=== PATIENT | male | born 1960 | race Caucasian/White ===

== ENCOUNTER 2022-03-30 16:16 | Observation (INO) | payer MEDICARE, MEDICAID, SELFPAY ==
[2022-03-29 13:28] VITALS: BMI 25.4
[2022-03-30] VITALS (20 sets, daily range): BP systolic 118–194; BP diastolic 77–111; PULSE 74–108; RESP 14–20; TEMP 36.5–37.6; O2SAT 92–98
--- NOTE | 2022-03-30 10:57 | P.ANESASSM_ITS ---
Pre-Anesthetic Assessment Height/Weight: Height 1.71 m Weight 74.843 kg Preop Diagnosis: Parotid mass Operation Date: 03/30/22 12:00 Proposed Procedures p Right Parotidectomy superfical or total poss abdominal fat graft harvest [id number] D11.0(Right) - Wade Vela MD s Skin Graft(Not Applicable) - Wade Vela MD Familial anesthetic complications: none Was Beta Tacos taken within 24 hours: N/A Was Clonidine taken within 24 hours: N/A Social Tobacco and No alcohol Exam alert, oriented x 3 and regular rate & rhythm B/L wheezing Airway Submandibular: within normal limits Cervical ROM: within normal limits Mallampati: Class II Comments: Comments: Upper dentures Pulmonary Says he had MAGUI on his chart when he had hand surgery, never followed up. No hx of witnessed apnea per spouse Denies dx of COPD CV/HEM Peripheral Vascular Disease (LE arterial stents ) EKG NSR today Able to ascend a flight of stairs w/o CP or SOB. When digging roots climbing steep hill does occasional get chest heaviness for which he stops and takes a rest and Rolaids before resuming the activity. Denies hx of CAD, [place], arrythmia None reported Hepatic None reported GI None reported Metabolic Hyperlipidemia [facility] [place] Remote hx of traumatic injury to hand Neuropsych None reported Anesthetic Plan ASA status: 3 Anesthesia: Anesthesia Evaluation and General Other: We discussed risk and benefits of general anesthesia including PONV, sore throat (sometimes severe), corneal abrasion, positioning and peripheral nerve injuries, life threatening allergic reaction, post operative ICU admission requiring prolonged intubation, aspiration, stroke, heart attack, , and rare incidences of recall. Patient consents to proceed with general anesthesia. Plan pre op scopalamine and diphenhydramine Risk of > 500 ml blood loss (7ml/kg in children): No Medications/Allergies Home Medications Medication Instructions Recorded Confirmed Last Taken Type aspirin 81 mg capsule 81 mg PO DAILY 03/29/22 03/29/22 03/25/22 History atorvastatin 20 mg tablet 20 mg PO DAILY 03/29/22 03/30/22 03/29/22 History clopidogrel 75 mg tablet 75 mg PO DAILY 03/29/22 03/29/22 03/25/22 History Allergies Allergy/AdvReac Type Severity Reaction Status Date / Time No Known Allergies Allergy Verified 03/29/22 12:49 [facility] Anesthesia Medical History (Updated 03/30/22 @ 11:35 by Joi Lewis DO) Peripheral artery disease Family History Mother Stroke Diabetes Social History Smoking and tobacco status: current every day smoker Second hand smoke exposure: Yes Data Anesthesia Cardiac Studies: No Data to Display
--- NOTE | 2022-03-30 11:10 | ECG_ITS ---
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 Measurements Intervals [place] Rate: 78 P: 54 [place]: 176 QRS: 56 QRSD: 86 T: 57 QT: 347 QTc: 397 Interpretive Statements SINUS RHYTHM No previous ECG available for comparison Electronically Signed On 03-30-2022 17:49:53 CDT by Gurdeep Tom M.D. [id number]
[2022-03-30] MEDS: scopolamine 1.5 Patch 1 PATCH TRANSDERMA (11:32)
[2022-03-30] MEDS: diphenhydrAMINE 50 mg/mL SDV 1mL 12.5 MG IVP (11:33)
[2022-03-30] MEDS: sodium chloride 0.9% 1,000 ML 30 ML IV (11:34)
--- NOTE | 2022-03-30 11:37 | W.PM.OPSUD ---
Surgery/Procedure H&P Update DATE OF PROCEDURE: March 30, 2022 DATE H&P PERFORMED: 03/08/22 PRIMARY INDICATION FOR PROCEDURE: Right parotid gland mass PLANNED PROCEDURE: Operation Date: 03/30/22 12:00 Proposed Procedures p Right Parotidectomy superfical or total poss abdominal fat graft harvest [id number] D11.0(Right) - Wade Vela MD s Skin Graft(Not Applicable) - Wade Vela MD
[2022-03-30] MEDS: ceFAZolin 2,000 MG in sodium chloride 0.9% (plus) 50 ML 100 MG IV ×2 (12:23→20:50)
[2022-03-30] MEDS: ceFAZolin 1,000 mg SDV 1000 MG IRRIGATION (13:33)
[2022-03-30] MEDS: EPINEPHrine 1 mg/mL INJ 2 MG XX (14:00)
[2022-03-30] MEDS: fluorescein 1 mg Strip 2 MG XX (14:02)
[2022-03-30] MEDS: thrombin 5,000 unit SDV 5000 UNIT XX (15:45)
[2022-03-30] MEDS: neomycin-poly-bacitracin oint 28 gm 1 APPLIC TOPICAL (16:00)
--- NOTE | 2022-03-30 16:48 | PM.OP ---
Operative Report Date of procedure: March 30, 2022 Pre-op diagnosis: Preop Diagnosis Right Parotid mass Post-op diagnosis: Same Post-op findings: Right tail of parotid mass Procedure done: Right superficial parotidectomy Implants: None Specimens removed/disposition: Right tail of parotid mass Pathology: Right tail of parotid mass Surgeon: Wade Vela Estimated blood loss: 20 IV fluids (mL): 1,000 Complications: None Findings: Large right tail of parotid mass Brief History: 61 yo wm who has a h/o a right tail of parotid gland mass who desires surgical therapy. Procedure: The patient was identified in the preop holding area and was taken to the operating where he was placed on the operating table in the supine position. Anesthesia was achieved with general endotracheal anesthesia and the table was then turned 180 degrees and the patient's head was turned to the left exposing the right face to the operating surgeon. A modified Stan incision was drawn out on the patient and was injected with local anesthesia. The patient was then prepped and draped in the usual sterile fashion and also had an incision the was drawn out and sterilely prepped in the left lower quadrant of the abdomen. The incision was made on the right face with a 15 blade and was carried down through the subcutaneous tissues. An anteriorly based subcutaneous flap was raised over the patient's right face and a broad dissection began along the posterior border of the right parotid gland. The parotid gland was from the sternocleidomastoid muscle and the right auricular cartilage. The dissection proceeded under 5 power loupe magnification with the Nirvana nerve monitoring hemostat down into the tympanomastoid suture line as the deepest point of the dissection. The facial nerve was then identified both visually and electrically was dissected free from the overlying parotid gland sequentially. The parotid tissue overlying the facial nerve was then divided with bipolar cautery. As the facial nerve was dissected free from the overlying parotid tissue the branches of the facial nerve were preserved intact. The tail of parotid mass was identified and then was excised while preserving a protecting the right facial nerve. 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 At this point hemostasis was achieved with bipolar cautery. Gelfoam soaked in thrombin and Surgicel were placed in the wound and a drain was placed in the wound. The left lower quadrant incision was made with a 15 blade and then fat was harvested from the left lower quadrant of the abdomen. The left lower quadrant wound was then closed after placing a Waterproof drain in the wound with interrupted 4-0 Monocryl sutures subcu and interrupted 3-0 Prolene on the skin. This left lower quadrant abdomen wound was then covered with a sterile dressing. The fat harvested was then placed in the surgical defect of the right face and was sutured in place with interrupted 4-0 Monocryl sutures. At this point the right facial wound was closed with interrupted 4-0 Monocryl sutures subcu and running 5-0 fast-absorbing gut on the face. The wound was then cleaned and covered with triple antibiotic ointment and a sterile pressure dressing was placed on the patient's facial wound. At this point the procedure was terminated and control of the patient was returned to anesthesia where he underwent an uneventful reversal of anesthesia and extubation and was taken to the recovery room in stable condition. There were no operative or anesthetic complications.
--- NOTE | 2022-03-30 16:49 | SUR.OPER ---
1600 Family Notified Of Patient's Status Via Phone.
--- NOTE | 2022-03-30 17:08 | ANE.PACU2 ---
Inpatient post-anesthesia follow up: Airway intact: Yes Vital signs: Temperature 98 F Pulse Rate 98 Respiratory Rate 15 Blood Pressure 160/109 Pulse Oximetry 94 Oxygen Delivery Me thod Nasal Cannula Oxygen Flow Rate 2 Fraction of Inspir ed Oxygen Hydration adequate: Yes Nausea and vomiting: No Pain level: 3 Mental status: Baseline
--- NOTE | 2022-03-30 17:41 | PC.NURSE ---
Nurse was notified of high bp 158/106 99.6t
--- NOTE | 2022-03-30 17:52 | PC.NURSE ---
1720 PATIENT TRANSPORTED TO FLOOR. FAMILY AT BEDSIDE. RECEIVING NURSE VISUALIZED DRESSINGS. VS STABLE.
--- NOTE | 2022-03-30 18:22 | PC.NURSE ---
received in to room 273 from pacu at 1730.report received.pt is alert and oriented x 4.right neck drsg is dry and intact..with roseanna intact to bulb suction.abd drsg dry and intact...(jabier drain under drsg).bp has been on high side.and at 1825 pt c/o heart burn with pain radiating down bilat arms.( pt states he has heartburn at home with radiation to arms).skin is dry.no sob.hr [address] gregg notified of bp readings and c/o chest pain.he ordered ekg.
--- NOTE | 2022-03-30 18:27 | ECG_ITS ---
[facility] Test Date: 2022-03-30 Pat Name: Basil Chua Department: Room: 273 Gender: Male Director Search: : 1960 Requested By: Wade Stone Order Number: [id number] [place] MD: Gurdeep Tom M.D. Measurements Intervals [place] Rate: 98 P: 63 [place]: 163 QRS: 60 QRSD: 89 T: 57 QT: 338 QTc: 433 Interpretive Statements SINUS RHYTHM Compared to ECG 03/30/2022 11:15:38 No significant changes Electronically Signed On 03-31-2022 0:19:07 CDT by Gurdeep Tom M.D. [email or web address] southeastern medical centerGAGA Sports & Entertainment/store/OM/[id number]
[2022-03-30] MEDS: alum-mag-hydroxide-sime 30 mL UDC PO (18:39)
[2022-03-30] MEDS: famotidine 20 mg/2 mL INJ IVP (18:44)
--- NOTE | 2022-03-30 19:19 | PC.NURSE ---
ekg performed shortly after ordering.pt states chest pain had resolved after maalox given.instructed to notify staff for any chest pain/heartburn.pt verb understanding of instruction
[2022-03-30] MEDS: HYDROcodone-acetaminophen 5-325 mg Tablet 1 TAB PO (20:05)
[2022-03-30] MEDS: atorvastatin 40 mg Tablet 20 MG PO (20:05)
--- NOTE | 2022-03-30 20:20 | XRR_ITS ---
PROCEDURE INFORMATION: Exam: XR Chest Exam date and time: 03/30/2022 8:30 PM Age: 61 years old Clinical indication: Pain; Angina pectoris; Additional info: Cp TECHNIQUE: Imaging protocol: Radiologic exam of the chest. Views: 1 view. COMPARISON: CT neck w con* [id number] 10/10/2019 8:16 AM FINDINGS: Lungs: There are normal lung volumes without interstitial or airspace opacities. Pleural spaces: There are no pleural effusions or pneumothorax. Heart/Mediastinum: The heart size is normal. There is a mildly tortuous thoracic aorta. The trachea is in the midline. Bones/joints: No acute abnormalities. XR/XR chest 1V portable [id number] IMPRESSION: No chest radiographic evidence of acute cardiopulmonary disease.
[2022-03-30] MEDS: calcium carbonate 500 mg Chew Tablet 1000 MG PO (20:44)
[2022-03-30] MEDS: carvedilol 3.125 mg Tablet PO (20:44)
[2022-03-30] MEDS: lactated ringers 1,000 ML 125 ML IV (20:45)
[2022-03-30] MEDS: lidocaine 2% viscous 15 ML, aluminum-mag hydrox-simethicon 30 ML, sucralfate oral liq 1 GM PO (21:18)
[2022-03-30 21:52] LABS: Basophils % 0.1 %; Hematocrit 42.1 % (42.0-52.0); Lymphocytes % 6.7 %; Mean Corpuscular HGB Conc 33.3 g/dL (30.0-36.0); Mean Corpuscular Volume 93.1 fl (80-94); Mean Platelet Volume 11.3 fL (7.4-10.4); Monocytes # 0.6 10^3/uL (0.2-0.9); Neutrophils # 12.63 10^3/uL (1.8-7.7); Neutrophils % 88.5 %; Nucleated Red Blood Cells % 0 %; Platelet Count 298 10^3/cmm (130-400); Red Blood Count 4.52 10^6/uL (4.1-5.3); Red Cell Distribution Width 13.3 % (12.1-15.1); White Blood Count 14.3 10^3/uL (4.0-10.0)
--- NOTE | 2022-03-30 21:52 | P.CONIM_ITS ---
Providers/Reason For Consult Consulting Physician/Specialty*: ENT Reason for Consult*: Chest pain Attending Physician: Wade Vela MD Primary Care Provider: Lopez Lyon History of Present Illness History of Present Illness Basil Chua is a 61 year old male with a past medical history of peripheral vascular disease on aspirin, statin, Plavix, no history of CAD, no history of CHF, no history of diabetes who presents [facility] for a right superficial parotid ectomy for a right tail parotid mass, hospitalist team was consulted for chest pain. Patient tells me that he has been having intermittent chest pain for the last few weeks, right-sided, radiating down both arms, no lightheadedness, dizziness, nausea, vomiting. He thought it was acid reflux. This afternoon, after he had a sandwich, he started to have some epigastric discomfort, then developed a right-sided chest pain, radiating down both arms, no shortness of breath, no diaphoresis, lightness, dizziness. Currently chest pain-free Review of Systems Card: Reports: chest pain Resp: Denies: dyspnea GI: Denies: abdominal pain Medications/Allergies Home Medications Medication Instructions Recorded Confirmed Last Taken Type aspirin 81 mg capsule 81 mg PO DAILY 03/29/22 03/29/22 03/25/22 History atorvastatin 20 mg tablet 20 mg PO DAILY 03/29/22 03/30/22 03/29/22 History clopidogrel 75 mg tablet 75 mg PO DAILY 03/29/22 03/29/22 03/25/22 History Allergies Allergy/AdvReac Type Severity Reaction Status Date / Time No Known Allergies Allergy Verified 03/29/22 12:49 Current Medications Generic Name Dose Route Start Last Admin Trade Name Freq PRN Reason Stop Dose Admin Hydrocodone Bitart/Acetaminophen 1 tab 03/30/22 17:22 03/30/22 20:05 Hydrocodone-Acetaminophen 5-325 Mg Tablet PO 1 tab Q6H PRN Administration MODERATE PAIN Al Hydrox/Mg Hydrox/Simethicone 30 ml 03/30/22 18:20 03/30/22 18:39 Xddh-Qnx-Gbqpqlxae-Rashida 30 Ml Udc PO 30 ml Q4H PRN Administration INDIGESTION Atorvastatin Calcium 20 mg 03/30/22 21:00 03/30/22 20:05 Atorvastatin 40 Mg Tablet PO 20 mg BEDTIME JUAN PABLO Administration Calcium Carbonate 1,000 mg 03/30/22 20:30 03/30/22 20:44 Calcium Carbonate 500 Mg Chew Tablet PO 1,000 mg Q4H PRN Administration INDIGESTION Carvedilol 3.125 mg 03/30/22 20:20 03/30/22 20:44 Carvedilol 3.125 Mg Tablet PO 3.125 mg BID JUAN PABLO Administration Docusate Sodium 100 mg 03/30/22 18:00 03/30/22 18:39 Docusate Sodium 100 Mg Capsule PO Not Given BID JUAN PABLO Famotidine 20 mg 03/30/22 17:22 03/30/22 18:44 Famotidine 20 Mg/2 Ml Inj IVP 20 mg Q12H JUAN PABLO Administration Lactated Ringer's 1,000 mls @ 125 mls/hr 03/30/22 17:22 03/30/22 20:45 Lactated Ringers IV 125 mls/hr .Q8H JUAN PABLO Administration Cefazolin Sodium 2,000 mg/ 50 mls @ 100 mls/hr 03/30/22 20:00 03/30/22 21:22 Sodium Chloride IV 03/31/22 04:29 Infused Q8H JUAN PABLO Infusion Protocol PFSH Acute PFSH: Medical History (Updated 03/30/22 @ 21:54 by Marquez Collado MD) Arthritis DVT (deep venous thrombosis) GERD (gastroesophageal reflux disease) High cholesterol HTN (hypertension) Hyperlipidemia Mass of right parotid gland PAD (peripheral artery disease) Peripheral artery disease Posterior cervical lymphadenopathy PVD (peripheral vascular disease) Tobacco use Warthin's tumor Surgical History (Updated 03/30/22 @ 21:53 by Marquez Collado MD) H/O hand surgery History of surgery on lower extremity Family History Mother Stroke Diabetes Social History Smoking and tobacco status: current every day smoker Second hand smoke exposure: Yes Vitals/I&O/Wt Last Vital Signs Temp 97.9 F 03/30/22 19:50 Pulse 95 03/30/22 19:50 Resp 18 03/30/22 19:50 BP 158/91 03/30/22 19:50 Pulse Ox 94 03/30/22 19:50 O2 Del Method 03/30/22 20:27 O2 Flow Rate 2 08/23/22 17:00 03/30/22 03/30/22 03/30/22 06:59 14:59 22:59 Intake Total 50 / 50 1200 / 1250 Output Total 105 / 105 Balance 50 / 50 1095 / 1145 Weight last 48 hrs Weight 74.616 kg Weight 74.843 kg Physical Exam Const: COMMON NORMALS: no acute distress and patient oriented x3 OTHER: , Currently dressing over surgical site, HENMT: COMMON NORMALS: normocephalic HEAD & SCALP: normocephalic Neck/C-Spine: COMMON NORMALS: no JVD Resp: COMMON NORMALS: normal respiratory effort, No retractions, No use of accessory muscles and clear to auscultation bilaterally AUSCULTATION: clear to auscultation bilaterally Cardio: COMMON NORMALS: no JVD, regular rate, regular rhythm, S1 normal heart sound present and S2 normal heart sound present RATE: regular rate RHYTHM: regular rhythm HEART SOUNDS: S1 normal heart sound present and S2 normal heart sound present GI: COMMON NORMALS: Normal to inspection, nondistended, normoactive bowel sounds present, Soft to palpation, non-tender, No hepatosplenomegaly present, no masses and no bruits PALPATION: Yes Soft to palpation and Yes No h epatosplenomegaly present Extremity: COMMON NORMALS: capillary refill normal, no clubbing, cyanosis or edema, no calf tenderness and no pedal edema Neuro: COMMON NORMALS: patient oriented x3 Psych: COMMON NORMALS: mental status grossly normal Urinary Catheter Management: Hickey: Cath Placed During This Visit: yes, but has since been removed by the nurse Urinary Catheter Date of Insertion: 03/30/22 Urinary Catheter Time of Insertion: 13:00 Date Urinary Catheter Removed: 03/30/22 Time Urinary Catheter Discontinued: 16:13 Data : 03/30/22 21:35 03/30/22 21:35 A&P Assessment and plan (1) Chest pain: Status: Acute Plan Chest pain -Does have some features concerning for cardiac etiology -Currently chest pain-free -Hold off on aspirin, statin, Plavix until Dr. Selby is okay with resuming, unless he has recurrent chest pain or other EKG changes or troponin elevation -Serial EKGs, serial troponins, telemetry monitoring -Coreg for blood pressure control, nitro as needed for chest pain -Blood work, cardiac echo - full code -SCDs for DVT prophylaxis - Consult Attestations Medical Necessity Statement: Patient requires positions for right superficial parotidectomy, hospitalist team consulted for chest pain Coding Level of Care Code Acute Health Education Teacher for Chg Fwd Diagnoses Chest pain R07.9
[2022-03-30 22:16] LABS: Troponin(5th) Baseline 6 ng/L (0-15)
--- NOTE | 2022-03-30 22:19 | ECG_ITS ---
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 Measurements Intervals [place] Rate: 70 P: 67 GA: 183 QRS: 67 QRSD: 94 T: 64 QT: 375 QTc: 407 Interpretive Statements SINUS RHYTHM Compared to ECG 03/30/2022 18:27:40 No significant changes Electronically Signed On 03-31-2022 16:30:15 CDT by Jesus Jackson M.D. [id number]
[2022-03-30 22:26] LABS: Blood Urea Nitrogen 16 mg/dL (8-23); Calcium 8.7 mg/dL (8.5-10.5); Carbon Dioxide 20 mmol/L (22-29); Glomerular Filtration Rate 68.1 mL/min (90-130); Glucose 205 mg/dL (65-115); Magnesium 1.8 mg/dL (1.7-2.3); NT Pro B Type Natriuretic Pept 71 pg/mL (0-125); Phosphorus 1.7 mg/dL (2.5-4.5); Thyroid Stimulating Hormone 0.46 uIU/mL (0.27-4.20); Total Bilirubin 0.2 mg/dL (0.15-1.2); Total Protein 6.3 g/dL (6.6-8.7)
[2022-03-30 22:31] LABS: Anion Gap 21.4 (5-19); Chloride 101 mmol/L (98-107); Osmolality Calculated 293 mOsm/kg (285-295); Potassium 4.4 mmol/L (3.5-5.1); Sodium 138 mmol/L (136-145)
[2022-03-30 22:52] LABS: Globulin 2.3 g/dL (1.3-4.6)
[2022-03-30 23:29] LABS: Alanine Aminotransferase 14 U/L (0-41); Alkaline Phosphatase 72 U/L (40-130); Aspartate Amino Transferase 11 U/L (0-40)
--- NOTE | 2022-03-31 | USCV_ITS ---
Basil Chua Age: 61 Gender: M : 1960 Exam Date: 03/31/2022 00:09 Ordering Phys: Marquez Collado MD Technologist: DARA Exam Location: [facility] – [place] Indication: Per patient -- chronic intermittent shortness of breath since 2016. Patient is post-op 03/30/22 - tumor resection from head/neck area BP: 158 / 91 HR: Rhythm: Sinus Technical Quality: Suboptimal MEASUREMENTS (Male / Female) Normal Values FINDINGS Left Ventricle Normal left ventricular size, systolic function and wall thickness, with no regional wall motion abnormalities. Grade I/IV diastolic dysfunction (abnormal relaxation filling pattern), normal to mildly elevated filling pressures. Left ventricular ejection fraction is estimated at 60 %. Right Ventricle Normal right ventricular size and systolic function. Right Atrium Right atrium not well visualized. Left Atrium Left atrium not well visualized. Mitral Valve Structurally normal mitral valve without significant stenosis or prolapse. There is no mitral regurgitation. Aortic Valve Structurally normal aortic valve without significant sclerosis or stenosis. There is no aortic regurgitation. Tricuspid Valve Structurally normal tricuspid valve. Trace tricuspid valve regurgitation. Pulmonic Valve Pulmonic valve not well visualized. Pericardium Normal pericardium without effusion. Aorta Normal ascending aorta dimension. IVC The inferior vena cava pulmonary and hepatic veins appear normal. CONCLUSIONS Normal left ventricular size, systolic function and wall thickness, with no regional wall motion abnormalities. Grade I/IV diastolic dysfunction (abnormal relaxation filling pattern), normal to mildly elevated filling pressures. Left ventricular ejection fraction is estimated at 60 %. Dr. Jesus Jackson MD (Electronically Signed) Final Date: 31 March 2022 16:01 S
[2022-03-31 01:00] VITALS: BP 128/77; PULSE 76; RESP 18; O2SAT 94
[2022-03-31 01:17] LABS: Troponin 5 2HR Delta 0 ABS# (0-10)
[2022-03-31] MEDS: HYDROcodone-acetaminophen 5-325 mg Tablet 1 TAB PO ×2 (02:07→10:20)
[2022-03-31] MEDS: lactated ringers 1,000 ML 125 ML IV ×2 (02:09→10:21)
[2022-03-31] MEDS: calcium carbonate 500 mg Chew Tablet 1000 MG PO (03:52)
[2022-03-31] MEDS: ceFAZolin 2,000 MG in sodium chloride 0.9% (plus) 50 ML 100 MG IV (03:53)
[2022-03-31 04:00] VITALS: BP 132/85; PULSE 71; RESP 18; TEMP 36.6; O2SAT 92
[2022-03-31] MEDS: famotidine 20 mg/2 mL INJ IVP (04:45)
[2022-03-31 04:53] LABS: Troponin 5 6HR 9.53 ng/L (0-15)
[2022-03-31 05:16] LABS: Troponin 5 6HR Delta 3.53 ng/L (0-12)
--- NOTE | 2022-03-31 05:22 | P.PN_ITS ---
Subjective Subjective: 61 yo wm who is POD #1 s/p right superficial parotidectomy for a Warthin's tumor. The patient c/o chest pain last night and is currently undergoing a w/u by the Hospitalist team (Dr. Collado). The patient is asymptomatic and without c/o this morning. Medications: Reviewed: Yes Vitals/I&O/Wt Last Vital Signs Temp 97.8 F 03/31/22 04:00 Pulse 71 03/31/22 04:00 Resp 18 03/31/22 04:00 BP 132/85 03/31/22 04:00 Pulse Ox 92 03/31/22 04:00 O2 Del Method 03/31/22 01:00 O2 Flow Rate 2 03/30/22 17:00 03/30/22 03/30/22 03/31/22 14:59 22:59 06:59 Intake Total 50 / 50 1200 / 1250 725 / 1975 Output Total 105 / 105 500 / 605 Balance 50 / 50 1095 / 1145 225 / 1370 Weight last 48 hrs Weight 74.616 kg Weight 74.843 kg Physical Exam Const: COMMON NORMALS: no acute distress, patient oriented x3 and alert HENMT: COMMON NORMALS: normocephalic and atraumatic HEAD & SCALP: normocephalic and atraumatic FACE & SINUS: normal facial exam and other (The right facial wound is intact without swelling or redness.) Eye: COMMON NORMALS: Equal, round and reactive pupils present, conjunctivae normal and no scleral icterus CONJUNCTIVA: Yes conjunctivae normal PUPIL: Yes Equal, round and reactive pupils present Neck/C-Spine: COMMON NORMALS: no lymphadenopathy and supple Chest: COMMONS NORMALS: normal inspection of the chest Resp: COMMON NORMALS: normal respiratory effort, No retractions, No use of accessory muscles and clear to auscultation bilaterally AUSCULTATION: clear to auscultation bilaterally Cardio: COMMON NORMALS: regular rate, regular rhythm and No murmurs present (Cardio) RATE: regular rate RHYTHM: regular rhythm GI: COMMON NORMALS: Normal to inspection, nondistended, normoactive bowel sounds present Extremity: NARRATIVE EXTREMITY EXAM: Post surgical changes of the right hand; o/w normal. Neuro: COMMON NORMALS: patient oriented x3 and CN's II-XII intact bilaterally SENSORIUM/ORIENTATION: Yes alert Psych: COMMON NORMALS: mental status grossly normal Skin: COMMON NORMALS: no rashes or lesions noted GENERAL SKIN EXAM: no rashes or lesions noted Urinary Catheter Management: Hickey: Cath Placed During This Visit: yes, but has since been removed by the nurse Urinary Catheter Date of Insertion: 03/30/22 Urinary Catheter Time of Insertion: 13:00 Date Urinary Catheter Removed: 03/30/22 Time Urinary Catheter Discontinued: 16:13 Data : 03/30/22 21:35 03/30/22 21:35 A&P Assessment and plan (1) Mass of right parotid gland: Impression: Right parotid Warthin's tumor - doing well s/p right superficial parotidectomy Plan: - Dressing removedd - Continue closed suction drain - Regular diet - Apply KENYON to the right facial wound - Daily dressing changes on the left abdominal dressin - I will d/c to home/PCP when cleared by Dr. Collado. I appreciate his timely consultation. Status: Acute (2) Chest pain: Impression: Pt asymptomatic this morning Plan: - I will d/c to home/PCP when cleared by Dr. Collado. - I will restart his Plavix and Aspirin today Status: Acute (3) Peripheral artery disease: Status: Acute Attestations Medical Necessity Statement*: The patient patient required overnight observation of his airway and neck wound. Also, he is being evaluated for chest pain. Coding Level of Care Code Acute Magnetic Resonance Imaging Coordinator for Jose Miguel Mendoza Diagnoses Mass of right parotid gland K11.8 Chest pain R07.9 Peripheral artery disease I73.9
[2022-03-31 06:00] VITALS: PULSE 66
[2022-03-31 07:41] VITALS: BP 144/85; PULSE 72; RESP 16; TEMP 36.8; O2SAT 94
[2022-03-31] MEDS: clopidogrel 75 mg Tablet PO (10:20)
[2022-03-31] MEDS: carvedilol 3.125 mg Tablet PO (10:20)
[2022-03-31] MEDS: aspirin 81 mg EC Tablet PO (10:20)
[2022-03-31] MEDS: docusate sodium 100 mg Capsule PO (10:20)
[2022-03-31] MEDS: neomycin-poly-bacitracin oint 28 gm 1 APPLIC TOPICAL ×2 (10:26→14:41)
--- NOTE | 2022-03-31 10:43 | P.PN_ITS ---
Subjective Subjective: No acute events overnight. Patient laying comfortably in bed. Blood pressure better controlled. Denies any nausea, vomiting, headache. Denies any chest pain. Medications: Reviewed: Yes Vitals/I&O/Wt Last Vital Signs Temp 98.2 F 03/31/22 07:41 Pulse 72 03/31/22 07:41 Resp 16 03/31/22 07:41 BP 144/85 03/31/22 07:41 Pulse Ox 94 03/31/22 07:41 O2 Del Method 03/31/22 07:41 O2 Flow Rate 2 03/30/22 17:00 03/30/22 03/31/22 03/31/22 22:59 06:59 14:59 Intake Total 1200 / 1250 725 / 1975 1240 / 1240 Output Total 105 / 105 525 / 630 Balance 1095 / 1145 200 / 1345 1240 / 1240 Weight last 48 hrs Weight 74.616 kg Weight 74.843 kg Physical Exam Const: COMMON NORMALS: no acute distress and patient oriented x3 OTHER: , Surgical site looks clean, drain present HENMT: COMMON NORMALS: normocephalic HEAD & SCALP: normocephalic Neck/C-Spine: COMMON NORMALS: no JVD Resp: COMMON NORMALS: normal respiratory effort, No retractions, No use of accessory muscles and clear to auscultation bilaterally AUSCULTATION: clear to auscultation bilaterally Cardio: COMMON NORMALS: no JVD, regular rate, regular rhythm, S1 normal heart sound present and S2 normal heart sound present RATE: regular rate RHYTHM: regular rhythm HEART SOUNDS: S1 normal heart sound present and S2 normal heart sound present GI: COMMON NORMALS: Normal to inspection, nondistended, normoactive bowel sounds present, Soft to palpation, non-tender, No hepatosplenomegaly present, no masses and no bruits PALPATION: Yes Soft to palpation and Yes No hepatosplenomegaly present Extremity: COMMON NORMALS: capillary refill normal, no clubbing, cyanosis or edema, no calf tenderness and no pedal edema Neuro: COMMON NORMALS: patient oriented x3 Psych: COMMON NORMALS: mental status grossly normal Urinary Catheter Management: Hickey: Cath Placed During This Visit: yes, but has since been removed by the nurse Urinary Catheter Date of Insertion: 03/30/22 Urinary Catheter Time of Insertion: 13:00 Date Urinary Catheter Removed: 03/30/22 Time Urinary Catheter Discontinued: 16:13 Data : 03/30/22 21:35 03/30/22 21:35 A&P Assessment and plan (1) Chest pain: Patient has a history of significant PAD. Restarted aspirin and Plavix last night after confirming with Dr. Selby. Continue home dose statin. Check A1c, lipid panel. Echocardiogram done. Results awaited. If patient has regional wall motion abnormality most likely would need early Lexiscan stress test as an outpatient for further evaluation. Troponins cycle overnight negative. Status: Acute (2) HTN (hypertension): Goal blood pressure less than 140/90 mmHg. Continue with Coreg started overnight. Blood pressures at goal. Status: Acute Plan Patient can be discharged on aspirin, Plavix, statin along with Coreg. Patient is advised to maintain a blood pressure diary by checking his blood pressure twice daily and follow-up with his primary care provider within next 2 weeks for further adjustment of antihypertensives. Will await echocardiogram results. We will plan for follow-up with cardiology versus Lexiscan stress test as an outpatient depending on EF and regional wall motion abnormality on echocardiogram. Otherwise patient is safe to be discharged from medical point of view after echocardiogram results. Care discussed in detail with RN and patient primary team. Attestations Medical Necessity Statement*: As per primary team Time Spent in Patient Care: Greater than 35 minutes Coding Level of Care Code Acute Tool Room Gear Machine Operator for Jose Miguel Mendoza Diagnoses Chest pain R07.9 HTN (hypertension) I10
[2022-03-31 11:15] LABS: Chol HDL Ratio 3.47 mg/dL (1.0-5.00); Cholesterol 149 mg/dL (0-200); HDL Cholesterol 43 mg/dL (60-100); LDL Cholesterol Calculated 86 mg/dL (50-129); Thyroid Stimulating Hormone 0.38 uIU/mL (0.27-4.20); Triglycerides 99 mg/dL (0-150); VLDL Cholestrol Calculation 20 mg/dL (0-30)
[2022-03-31 11:20] LABS: Estmated Average Glucose 111; Hemoglobin A1C 5.5 % (4.0-6.0)
[2022-03-31 12:00] VITALS: BP 124/84; PULSE 76; RESP 16; TEMP 36.9; O2SAT 95
--- NOTE | 2022-03-31 13:05 | PC.CHAP ---
Pastoral Care Encounter/Spiritual Assessment Type of Contact [] Declined arc furnace operator visit [] Patient/Family/Request visit [] Outpatient visit [] Follow-up visit [] Physician referral [] Code/Alert [x] Routine visit [] Staff referral [] Actively dying [] Patient sleeping [x] Family support [] [] Out of room [] Palliative care [] [] Receiving care in room [] Pre-surgical visit [] Trauma [] Long length of stay [] ICU visit [x] Other: pleased with surgery.. prayed for healing and pain Relational/Emotional Strength [] Patient feels connected with others/family/visitors/staff [] Distress [] Loneliness/isolation [] Abandonment Spirituality of Patient [] Person of Lori [] Attends Yazidism of their Lori [] Believes in Prayer [] Reads Bible or Religion materials [] There are Spiritual issues to be addressed Advisory Services Associate Interventions [x] Prayer [] Active listening [] Non-anxious presence [] Spiritual/emotional support [] Crisis/trauma care [] Spiritual counseling [] Bereavement support [] Provided bereavement packet [] Provided Bible/devotional materials [] Provided toy/stuffed animal, coloring book to patient or family member [] Provided Communion [] Anointing/[place] [] Salvation [x] Completed spiritual assessment [] Other: Impact on Illness or Injury [] Angry [] Fearful [] Anxious [] Often cries [] Exhaustion [] Unable to work [] Unable to attend yarsanism [] Unable to walk/stand [] Unable to read [] Unable to drive [] Unable to eat/drink [] Unable to sleep [] Unable to be with family [] Patient intubated [] Other: Summary Time spent with patient
--- NOTE | 2022-03-31 16:57 | P.DS_ITS ---
Discharge Providers Date of Admission: 03/30/22 16:16 Date of Discharge: March 31, 2022 Attending Provider at Admission: Wade Vela MD Attending Provider at Discharge: Wade Vela MD Consults: Hospitalist Team Primary Care Provider: Lopez Lyon Diagnoses at Discharge Discharge Diagnosis (1) Chest pain: Details from hospital stay: The patient c/o chest on the night of surgery. The Hospitalist team was consulted. Please see their notes for details of this w/u. Status: Acute (2) HTN (hypertension): Details from hospital stay: The patient was noted to have hypertension post op. The Hospitalist team was c onsulted. Please see their notes for details. 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 Vela's office in 48 hours - Notify Dr. Vela for any problems - Benezett () tabs: take 1-2 tabs po Q5 hours prn pain, #25, NR Status: Acute Reason for Visit Reason for Visit: Brief History: 61 yo wm with a h/o a right parotid mass who desires surgical excisional biopsy. Hospital Course Hospital Course The patient was admitted on 30 March 2022 for surgical excision of a right parotid mass. Patient underwent a right superficial parotidectomy with left abdominal fat graft harvest -please see the op report for details of this procedure. The patient was transferred to the PACU postop where he was noted to have hypertension. Patient also complained of chest pain once he arrived on the floor. The hospitalist team was consulted and the patient underwent an evaluation for chest pain. Please see the hospitalist team's notes for details of this work-up. On postop day 1 in the afternoon, the patient was cleared by the hospitalist team for discharge. He was discharged in stable condition with follow-up with cardiology and his PCP. For his cardiac work-up and hypertensio n. His aspirin and Plavix were restarted on postop day 1. Patient is to follow-up with Dr. Selby in 48 hours for evaluation of his drain. He is to and notify Dr. Osorio for any problems. Physical Exam Const: COMMON NORMALS: no acute distress, patient oriented x3 and alert HENMT: COMMON NORMALS: normocephalic, atraumatic and Normal external nose present HEAD & SCALP: normocephalic and atraumatic FACE & SINUS: normal facial exam and other (The right facial/neck wound is intact without swelling or redness. ) NOSE: Normal external nose present Eye: COMMON NORMALS: Equal, round and reactive pupils present and conjunctivae normal CONJUNCTIVA: Yes conjunctivae normal PUPIL: Yes Equal, round and reactive pupils present Neck/C-Spine: COMMON NORMALS: no lymphadenopathy and supple Lymph: LYMPHATIC: no lymphadenopathy noted Chest: COMMONS NORMALS: normal inspection of the chest Resp: COMMON NORMALS: normal respiratory effort, No retractions, No use of accessory muscles and clear to auscultation bilaterally AUSCULTATION: clear to auscultation bilaterally Cardio: COMMON NORMALS: regular rate, regular rhythm and No murmurs present (Cardio) RATE: regular rate RHYTHM: regular rhythm GI: COMMON NORMALS: Normal to inspection, nondistended, normoactive bowel sounds present Extremity: NARRATIVE EXTREMITY EXAM: Post traumatic scarring of the right hand, but o/w normal extremities. Neuro: COMMON NORMALS: patient oriented x3, CN's II-XII intact bilaterally, moves all extremities and no focal motor deficits SENSORIUM/ORIENTATION: Yes alert Urinary Catheter Management: Hickey: Cath Placed During This Visit: yes, but has since been removed by the nurse Urinary Catheter Date of Insertion: 03/30/22 Urinary Catheter Time of Insertion: 13:00 Date Urinary Catheter Removed: 03/30/22 Time Urinary Catheter Discontinued: 16:13 Discharge Data Studies Completed and Pending Completed Studies During Hospitalization Category Date Time Status XR chest 1V portable [id number] Routine Exams 03/30/22 20:20 Completed Pathology: Surgical [PTH] Routine Pth 03/30/22 16:07 Completed Pending at discharge Category Date Time Status CV. echo complete* [id number] Routine Ultrasound 03/31/22 21:51 Taken Radiology Impressions Chest X-Ray 03/30/22 20:20 IMPRESSION: No chest radiographic evidence of acute cardiopulmonary disease. Laboratory Results WBC 14.3 10^3/uL (4.0-10.0) H 03/30/22 21:35 RBC 4.52 10^6/uL (4.1-5.3) 03/30/22 21:35 Hgb 14.0 g/dL (11.7-16.6) 03/30/22 21:35 Hct 42.1 % (42.0-52.0) 03/30/22 21:35 MCV 93.1 fl (80-94) 03/30/22 21: MCH 31.0 pg (28.0-34.0) 03/30/22 21:35 MCHC 33.3 g/dL (30.0-36.0) 03/30/22 21:35 RDW 13.3 % (12.1-15.1) 03/30/22 21:35 Plt Count 298 10^3/cmm (130-400) 03/30/22 21:35 MPV 11.3 fL (7.4-10.4) H 03/30/22 21:35 Neut % (Auto) 88.5 % 03/30/22 21: Lymph % (Auto) 6.7 % 03/30/22 21:35 [place] % (Auto) 4.0 % 03/30/22 21:35 Eos % (Auto) 0.0 % 03/30/22 21:35 Baso % (Auto) 0.1 % 03/30/22 21: Neut # (Auto) 12.63 10^3/uL (1.8-7.7) H 03/30/22 21:35 Lymph # (Auto) 1.0 10^3/uL (0.8-4.8) 03/30/22 21:35 [place] # (Auto) 0.6 10^3/uL (0.2-0.9) 03/30/22 21:35 Eos # (Auto) 0.0 10^3/uL (0.0-0.8) 03/30/22 21:35 Baso # (Auto) 0.0 10^3/uL (0.0-0.1) 03/30/22 21:35 Nucleated RBC % (auto) 0 % 03/30/22 21: Nucleated RBCs # 0.0 /100WBC 03/30/22 21: Sodium 138 mmol/L (136-145) 03/30/22 21:35 Potassium 4.4 mmol/L (3.5-5.1) 03/30/22 21:35 Chloride 101 mmol/L (98-107) 03/30/22 21:35 Carbon Dioxide 20 mmol/L (22-29) L 03/30/22 21:35 Anion Gap 21.4 (5-19) H 03/30/22 21:35 BUN 16 mg/dL (8-23) 03/30/22 21:35 Creatinine 1.1 mg/dL (0.7-1.2) 03/30/22 21:35 GFR Calculation 68.1 mL/min (90-130) L 03/30/22 21:35 Glucose 205 mg/dL (65-115) H 03/30/22 21:35 Estimat Average Glucose 111 03/30/22 21:35 Hemoglobin A1c 5.5 % (4.0-6.0) 03/30/22 21:35 Calculated Osmolality 293 mOsm/kg (285-295) 03/30/22 21:35 Calcium 8.7 mg/dL (8.5-10.5) 03/30/22 21:35 Phosphorus 1.7 mg/dL (2.5-4.5) L 03/30/22 21:35 Magnesium 1.8 mg/dL (1.7-2.3) 03/30/22 21:35 Total Bilirubin 0.2 mg/dL (0.15-1.2) 03/30/22 21:35 AST 11 U/L (0-40) 03/30/22 21:35 ALT 14 U/L (0-41) 03/30/22 21:35 Alkaline Phosphatase 72 U/L (40-130) 03/30/22 21:35 Troponin T Baseline 6 ng/L (0-15) 03/30/22 21:35 Troponin T 120 Minute 6.00 ng/L (0-15) 03/30/22 23:51 Delta Troponin T 0 ABS# (0-10) 03/30/22 23:51 Troponin T Hi Sens 6Hr 9.53 ng/L (0-15) 03/31/22 03:49 Troponin T Hi Sens 6Hr Delta 3.53 ng/L (0-12) 03/31/22 03:49 NT-Pro-B Natriuret Pep 71 pg/mL (0-125) 03/30/22 21:35 Total Protein 6.3 g/dL (6.6-8.7) L 03/30/22 21:35 Albumin 4.0 g/dL (3.5-5.2) 03/30/22 21:35 Globulin 2.3 g/dL (1.3-4.6) 03/30/22 21:35 Triglycerides 99 mg/dL (0-150) 03/31/22 03:49 Cholesterol 149 mg/dL (0-200) 03/31/22 03:49 LDL Cholesterol, Calc 86 mg/dL (50-129) 03/31/22 03:49 Total VLDL Cholesterol 20 mg/dL (0-30) 03/31/22 03:49 HDL Cholesterol 43 mg/dL (60-100) L 03/31/22 03:49 Cholesterol/HDL Ratio 3.47 mg/dL (1.0-5.00) 03/31/22 03:49 TSH 0.38 uIU/mL (0.27-4.20) 03/31/22 03:49 Vitals Last Vital Signs Temp 98.5 F 03/31/22 12:00 Pulse 76 03/31/22 12:00 Resp 16 03/31/22 12:00 BP 124/84 03/31/22 12:00 Pulse Ox 95 03/31/22 12:00 O2 Del Method 03/31/22 12:00 O2 Flow Rate 2 03/30/22 17:00 Discharge Plan Discharge Patient Disposition: Home Condition: Stable Prescriptions: New carvedilol 3.125 mg Tablet 3.125 mg PO BID Qty: 60 0RF hydrocodone-acetaminophen 5-325 mg tablet 1 tab PO Q6H PRN (Reason: pain) Qty: 25 0RF Continued atorvastatin 20 mg tablet 20 mg PO DAILY clopidogrel 75 mg tablet 75 mg PO DAILY aspirin 81 mg Capsule 81 mg PO DAILY Discharge Orders: Discharge Order (Routine); Ordered 03/31/22 Ordered By: Wade Vela Other Ambulatory Orders: Sestamibi Stress Test Request (Routine) Timeframe: 1 Week Facility: [facility] - Location: Card[facility] Ordered By: Mansoor Lutz Referrals: Wade Vela MD [Physician] - (Please keep follow up appointment with Dr. Vela this TuesdayApril 02. ) Lopez Lyon [Primary Care Provider] - 2 weeks (PLEASE CALL WITH APPOINTMENT) Discharge Diet: Advance as tolerated Discharge Activity: Resume usual activity and Return to work/school after cleared by PCP/Specialist Patient Instructions: Hydrocodone/Acetaminophen (By mouth), Carvedilol (By mouth), Parotidectomy (GEN), Opioid Safety Activity Restrictions/Additional Instructions: Check blood pressure daily and maintain a blood pressure diary and follow the primary care provider within next 2 weeks for further adjustment of antihypertensive. Should have Lexiscan stress test done as an outpatient. Change left abdominal dressing daily Apply KENYON to the right neck wound TID Take all preop medications Take Benezett for pain F/U in Dr. Vela's office in [address] Vela for any problems Discharge Attestations Time Spent in Discharge Care*: greater than 30 min Time Spent in Smoking Cessation: 5 minutes Status at Discharge: Cognitive status at discharge: cognitively intact , Behavioral status at discharge: cooperative , Functional status at discharge: independent ambulation , Overall status at discharge: patient is back to baseline Quality Metrics Clinical Quality Measures [ No reported AMI, CVA or VTE this stay] Coding Level of Care Code New Pt Acute Chg FW DC note Patient Type New Exam Comprehensive Medical Decision Making Moderate Complexity Diagnoses Chest pain R07.9 HTN (hypertension) I10 Parotid mass K11.8 Time Spent (min) 30
[2022-03-31 17:46] VITALS: BP 124/84; PULSE 76; RESP 16; TEMP 36.9; O2SAT 95
--- NOTE | 2022-03-31 17:46 | PC.NURSE ---
DISCHARGE DISCUSSED WITH PATIENT AND SPOUSE. ALL QUESTIONS ANSWERED. THIS NURSE REMOVED PATIENT'S IV AND WHEELED HIM TO HIS TRANSPORT.
--- NOTE | 2022-04-06 06:45 | W.PM.OPSUD ---
Surgery/Procedure H&P Update DATE OF PROCEDURE: April 06, 2022 DATE H&P PERFORMED: 03/08/22 PREOP DIAGNOSIS: Parotid mass PLANNED PROCEDURE: Operation Date: 03/30/22 12:00 Proposed Procedures p Right Parotidectomy superfical or total poss abdominal fat graft harvest [id number] D11.0(Right) - Wade Vela MD s Skin Graft(Not Applicable) - Wade Vela MD
== END 2022-03-31 17:00 | disposition home or self-care (01) ==
LOC: MEDSURG 16:17
PROVIDERS: Family Medicine; Student in an Organized Health Care Education/Training Program; Admitting Provider Specialist; PCP Family Medicine; Visit Provider Specialist
PROC: (CPT 42410; principal; 2022-03-30 12:00)
PROC: (CPT 42420; 2022-03-30 12:00)
DX: D11.0 Benign neoplasm of parotid gland (principal); I10 Essential (primary) hypertension; R07.9 Chest pain, unspecified; Z95.5 Presence of coronary angioplasty implant and graft; E78.5 Hyperlipidemia, unspecified; Z79.82 Long term (current) use of aspirin; I73.9 Peripheral vascular disease, unspecified; F17.210 Nicotine dependence, cigarettes, uncomplicated; Z79.02 Long term (current) use of antithrombotics/antiplatelets; M19.90 Unspecified osteoarthritis, unspecified site; Z86.718 Personal history of other venous thrombosis and embolism
CPT/HCPCS: 42420; 12345; 36415; 51702; 71045; 80053; 80061; 83036; 83735; 83880; 84100; 84443; 84484; 85025; 88307; 88331; 93005; 93306; G0378; J0171; J0330; J0690; J1100; J1200; J2405; J2704; J3010; J3490; J7030

== ENCOUNTER 2025-06-05 09:07 | Emergency (ER) | payer MEDICARE, MEDICAID, SELFPAY ==
[2025-06-05 09:09] VITALS: BP 157/93; PULSE 82; RESP 18; TEMP 36.7; O2SAT 98; BMI 25.0
--- NOTE | 2025-06-05 09:12 | ECG_ITS ---
[facility] Test Date: 2025-06-05 Pat Name: Basil Chua Department: Room: Gender: Male Quality Assurance Specialist: : 1960 Requested By: Basil Garcia Order Number: [id number] [place] MD: Haim Babcock M.D. Measurements Intervals [place] Rate: 84 P: 73 ME: 169 QRS: 52 QRSD: 85 T: 44 QT: 330 QTc: 391 Interpretive Statements SINUS RHYTHM Compared to ECG 03/31/2022 00:54:14 No significant changes Electronically Signed On 06-06-2025 19:31:09 CDT by Haim Babcock M.D. [email or web address] [id number]
--- OUTSIDE RECORDS SUMMARY | 2025-06-05 09:31 | XMS_ITS | Encounter Summary ---
Author Organization [employer] Address [address] [place] [address] Care Team Providers Care Emergency Services Director Name Role Phone Lopez Lyon MD Primary Care Provider [phone] Encounter Details Date Type Department Care Team (Late st Contact Info) Description 05/28/2025 External Device Data [facility] ABSTRACTION Provider, Abstract NO ADDRESS ON FILE Social History Tobacco Use Types Packs/Day Years Used Date Smoking Tobacco: Every Day Cigarettes Smokeless Tobacco: Never Alcohol Use Standard Drinks/Week Comments Yes 2 (1 standard drink = 0.6 oz pur e alcohol) Social Connections Answer Date Recorded In a typical week, how many times do you talk on the phone with family, friends, or neighbors? Twice a week 07/17/2020 How often do you get together with friends or re latives? Once a week 07/17/2020 How often do you attend religious or scientologist serv ices? Never 07/17/2020 Do you belong to any clubs o r organizations such as religious groups, unions, fraternal or athletic groups, or school groups? Yes 07/17/2020 Attends Club or Organization Meetings Not on ej e 07/17/2020 Marital Status Not on file 07/17/2020 Financial Resource Strain Answer Date R ecorded How hard is it for you to pa y for the very basics like food, housing, medical care, and heating? Somewhat hard 02/05/2022 Food Insecurity Answer Date Recorded In the past 12 months, have you worried that your food would run out before you had money to buy more? Never true 02/05/2022 In the past 12 months, did y ou run out of food and didn't have money to buy more? Never true 02/05/2022 Transportation Needs Answer Date Record ed In the past 12 months, has l ack of transportation kept you from medical appointments or from getting medications? No 02/05/2022 Lack of Transportation (Non-Medical) Not on file 02/05/2022 Sex and Gender Information Value Date Recorded Sex Assigned at Not on file Legal Sex Male 8:33 AM MANAGER ZONE Gender Identity Not on file Sexual Orientation Not on file documented as of this encounter Plan of Treatment Upcoming Encounters Date Type Department Care Team (Late st Contact Info) Description 06/21/2025 1:20 PM MANAGER ZONE Office Visit [facility] [place] [address] [phone] Lopez Lyon MD [address] [phone] documented as of this encounter Visit Diagnoses Not on filedocumented in this encounter Care Teams Emergency Services Director Relationship Specialty Start Date End Date Lopez Lyon MD [address] [place] [phone] PCP - General Family Practice 04/24/24 documented as of this encounter
--- OUTSIDE RECORDS SUMMARY | 2025-06-05 09:31 | XMS_ITS | Encounter Summary ---
Author Organization [employer] Address [address] [place] [address] Care Team Providers Care Interventional Technologist Name Role Phone Lopez Lyon MD Primary Care Provider [phone] Encounter Details Date Type Department Care Team (Late st Contact Info) Description 05/29/2025 External Device Data STL ABSTRACTION Provider, Abstract [...] week 07/17/2020 How often do you attend faith or worship serv ices? 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 Gender Identity Not on file Sexual Orientation Not on file documented as of this encounter Plan of Treatment Upcoming Encounters Date Type Department Care Team (Late st Contact Info) Description 06/21/2025 1:20 PM GRADUATE RESEARCH ASSISTANT Office Visit [facility] [place] [address] [phone] Lopez Lyon MD [address] [phone] documented as of this encounter Visit Diagnoses Not on filedocumented in this encounter Care Teams Interventional Technologist Relationship Specialty Start Date End Date Lopez Lyon MD [address] [place] [phone] PCP - General Family Practice 04/24/24 documented as of this encounter
--- OUTSIDE RECORDS SUMMARY | 2025-06-05 09:31 | XMS_ITS | Encounter Summary ---
Author Organization [facility] Address [address] [place] [address] Care Team Providers Care Pipe Layer Name Role Phone Lopez Lyon MD Primary Care Provider [phone] Encounter Details Date Type Department Care Team (Late st Contact Info) Description 04/04/2017 Lab Requisition [facility] General Laboratory Services [place] [address] [place] [phone] Robbi Levine, MARQUIS [address] [place] [address] Social History Tobacco Use Types Packs/Day Years Used Date Smoking Tobacco: Every Day Cigarettes Smokeless Tobacco: Never Alcohol Use Standard Drinks/Week Comments Yes 0 (1 standard drink = 0.6 oz pur e alcohol) occasional Sex and Gender Information Value Date Recorded Sex Assigned at Not on file 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 Gender Identity Not on file Sexual Orientation Not on file documented as of this encounter Plan of Treatment Not on file documented as of this encounter Procedures Procedure Name Priority Date/Time Associated Diagnosis Comments CBC WITH DIFFERENTIAL Routine 04/04/2017 10:25 PM CDT LIPID PANEL Routine 04/04/2017 10:25 PM CDT COMPREHENSIVE METABOLIC PANEL Routine 04/04/2017 10:25 PM CDT documented in this encounter Results * (ABNORMAL) LIPID PANEL (04/04/2017 10:25 PM CDT) CHOLESTEROL 229(H) <200 mg/dL 04/05/2017 1:30 AM CDT [facility] TRIGLYCERIDE 204(H) <150 mg/dL 04/05/2017 1:30 AM CDT [facility] HDL 48 40 - 59 mg/dL 04/05/2017 1:30 AM CDT [facility] LDL CALCULATED 140(H) <100 mg/dL 04/05/2017 1:30 AM T [facility] NON-HDL CHOLESTEROL 181(H) <130 mg/dL 04/05/2017 1:30 AM T [facility] Blood 04/04/2017 10:2 5 PM CDT 04/05/2017 12:47 AM CDT [facility] - 04/05/2017 1:30 AM CDT TOTAL CHOLESTEROL mg/dL Desirable <200 Borderline high 200-239 High >=240 TRIGLYCERIDES mg/dL Normal <150 Borderline high 150-199 High 200-499 Very high >=500 HDL CHOLESTEROL mg/dL Low <40 Normal 40-59 Desirable >=60 NON HDL CHOLESTEROL mg/dL Optimal <130 Near Optimal 130-159 Borderline High 160-189 Very High >=190 Calculated LDL mg/dL Optimal <100 Near Optimal 100-129 Borderline High 130-159 High 160-189 Very High >=190 ATPIII Guidelines Reference Ranges for Lipid Panels (NCEP/AMA) Robbi CHO CHEMISTRY ORDERABLES Final R esult [facility] CLIA # [id number] [address] [place] [address] * COMPREHENSIVE METABOLIC PANEL (04/04/2017 10:25 PM CDT) SODIUM 139 136 - 145 mmol/L 04/05/2017 1:30 AM CDT [facility] POTASSIUM 4.5 3.5 - 5.1 mmol/L 04/05/2017 1:30 AM CDT [facility] CHLORIDE 99 98 - 107 mmol/L 04/05/2017 1:30 AM [facility] CO2 23 22 - 29 mmol/L 04/05/2017 1:30 AM [facility] CALCIUM 9.4 8.6 - 10.0 mg/dL 04/05/2017 1:30 AM [facility] BUN 19 6 - 20 mg/dL 04/05/2017 1:30 AM [facility] CREATININE 0.96 0.67 - 1.17 mg/dL 04/05/2017 1:30 AM [facility] GLUCOSE 93 74 - 106 mg/dL 04/05/2017 1:30 AM [facility] TOTAL PROTEIN 7.4 6.6 - 8.7 g/dL 04/05/2017 1:30 AM [facility] ALBUMIN 4.5 3.5 - 5.2 g/dL 04/05/2017 1:30 AM [facility] BILIRUBIN TOTAL <0.2 0.0 - 1.2 mg/dL 04/05/2017 1:30 AM [facility] ALKALINE PHOSPHATASE 71 40 - 129 U/L 04/05/2017 1:30 AM [facility] AST 17 10 - 50 U/L 04/05/2017 1:30 AM [facility] ALT 22 10 - 50 U/L 04/05/2017 1:30 AM [facility] GFR >60 >=60 mL/min/1.7 3 sq meter 04/05/2017 1:30 AM [facility] Comment: eGFR has not been validated for use in the elderly (> 70 years of age), women, patients with serious co-morbid conditions, or persons with extremes of body size or muscle mass and should also be interpreted with caution in patients with acute kidney failure, dialysis dependent patients, patients reporting exceptional dietary intake (e.g. vegetarian diet, high protein diets, creatine supplementation), and patients with severe liver disease. Based on National Kidney Disease Education Program If patient is , please refer to the GFR result. GFR, >60 >=60 mL/min/1.7 3 sq meter 04/05/2017 1:30 AM [facility] ANION GAP 17 12 - 20 mmol/L 04/05/2017 1:30 AM [facility] Blood 04/04/2017 10:2 5 PM CDT 04/05/2017 12:47 AM CDT us Robbi CHO CHEMISTRY ORDERABLES Final R esult [facility] CLIA # [id number] [address] [place] [address] * (ABNORMAL) CBC WITH DIFFERENTIAL (04/04/2017 10:25 PM CDT) WBC 8.9 4.2 - 9.1 K/uL 04/05/2017 1:20 AM [facility] RBC 4.67 4.63 - 6.08 M/uL 04/05/2017 1:20 AM [facility] HEMOGLOBIN 13.8 13.7 - 17.5 g/dL 04/05/2017 1:20 AM [facility] HEMATOCRIT 41.3 40.1 - 51.0 % 04/05/2017 1:20 AM [facility] MCV 88.4 79.0 - 92.2 fL 04/05/2017 1:20 AM [facility] MCH 29.6 25.7 - 32.2 pg 04/05/2017 1:20 AM [facility] MCHC 33.4 32.3 - 36.5 g/dL 04/05/2017 1:20 AM [facility] RDW 14.8(H) 11.0 - 14.5 % 04/05/2017 1:20 AM [facility] RDW-STDEV 47.2 36.9 - 56.9 fL 04/05/2017 1:20 AM [facility] PLATELETS 277 130 - 400 K/uL 04/05/2017 1:20 AM [facility] MPV 12.0 10.0 - 14.8 fL 04/05/2017 1:20 AM CDT [facility] NEUTROPHILS 41 34 - 68 % 04/05/2017 1:20 AM T [facility] LYMPHOCYTES 44 22 - 53 % 04/05/2017 1:20 AM T [facility] MONOCYTES 9 5 - 12 % 04/05/2017 1:20 AM T [facility] EOSINOPHILS 5 1 - 7 % 04/05/2017 1:20 AM T [facility] BASOPHILS 1 0 - 1 % 04/05/2017 1:20 AM T [facility] IMMATURE GRANULOCYTES 0 % 04/05/2017 1:20 AM T [facility] NEUTROPHIL ABSOLUTE 3.66 1.78 - 5.38 K/uL 04/05/2017 1:20 AM [facility] LYMPHOCYTE ABSOLUTE 3.90(H) 1.20 - 3.40 K/uL 04/05/2017 1:20 AM T [facility] MONOCYTE ABSOLUTE 0.80 0.30 - 0.82 K/uL 04/05/2017 1:20 AM [facility] EOSINOPHIL ABSOLUTE 0.42 0.04 - 0.54 K/uL 04/05/2017 1:20 AM [facility] BASOPHILS ABSOLUTE 0.06 0.01 - 0.08 K/uL 04/05/2017 1:20 AM [facility] IMMATURE GRANULOCYTES ABSOLUTE 0.03 K/uL 04/05/2017 1:20 AM [facility] Blood 04/04/2017 10:2 5 PM CDT 04/05/2017 12:47 AM CDT us Robbi CHO HEMATOLOGY ORDERABLES Final Result [facility] CLIA # [id number] [address] [address] documented in this encounter Visit Diagnoses Not on filedocumented in this encounter Care Teams Pipe Layer Relationship Specialty Start Date End Date Lopez Lyon MD [address] [address] PCP - General Family Practice 06/08/17 documented as of this encounter
--- OUTSIDE RECORDS SUMMARY | 2025-06-05 09:31 | XMS_ITS | Clinical Summary ---
Author Organization [facility] Address [address] [facility] Attn: Epic Prelude ADT NATHAN LERNER [address] Care Team Providers Care Wedding Decorator Name Role Phone Lopez Lyon MD Primary Care Provider [phone] Allergies No known active allergies Medications aspirin (ECOTRIN EC) 81 mg Tablet, Delayed Release (E.C.) Take 81 mg by mouth daily. 07/23/20 19 Active losartan (COZAAR) 25 mg tabletIndications: HTN (hypertension), benign Take 1 Tablet (25 mg) by mouth daily. 100 Tablet 3 04/24/20 24 Active atorvastatin (LIPITOR) 20 mg tabletIndications: PAD (peripheral artery disease),Mixed hyperlipidemia TAKE 1 TABLET BY MOUTH ONCE DAILY LATE IN THE DAY 100 Tablet 05/20/20 25 Active clopidogreL (PLAVIX) 75 mg TabletIndications: PAD (peripheral artery disease) Take 1 tablet by mouth once daily 100 Tablet 05/22/20 25 Active atorvastatin (LIPITOR) 20 mg tabletIndications: PAD (peripheral artery disease),Mixed hyperlipidemia Take 1 Tablet (20 mg) by mouth late in the day. 100 Tablet 3 04/24/20 24 025 Discontinued clopidogreL (PLAVIX) 75 mg TabletIndications: PAD (peripheral artery disease) Take 1 Tablet (75 mg) by mouth daily. 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 Reattached upper extremity complication, right 1 Tobacco dependence 05/31/2017 Mixed hyperlipidemia 05/31/2017 Osteoarthritis of multiple joints 05/31/2017 Resolved Problems Problem Noted Date Diagnosed Date Resolved Date Gastroesophageal reflux dise ase without esophagitis 09/26/2017 07/23/2021 PVD (peripheral vascular dis ease) with claudication 06/14/2017 09/20/2017 Encounters Date Type Department Care Team Description 05/29/2025 External Device Data [facility] ABSTRACTION Provider, Abstract 05/28/2025 External Device Data [facility] ABSTRACTION Provider, Abstract 05/22/[address] [address] Lopez Lyon MD PAD (peripheral artery disease) 05/20/[address] [address] Lopez Lyon MD wants jordan to call him back 05/18/[address] [address] Lopez Lyon MD PAD (peripheral artery disease); Mixed hyperlipidemia 05/14/2025 External Device Data STL ABSTRACTION Provider, Abstract 04/23/2025 External Device Data [facility] ABSTRACTION Provider, Abstract 03/26/2025 External Device Data [facility] ABSTRACTION Provider, Abstract 03/19/2025 External Device Data ST[facility] ABSTRACTION Provider, Abstract from Last 3 Months Immunizations Immunization Administration Dates Next Due (ADACEL/BOOSTRIX)(10 YR UP) TDAP VACCINE, 0.5ML, IM 01/04/2017 Family History Medical History Relation Name Comments Diabetes Mother Stroke Mother Relation Name Status Comments Mother Social History Tobacco Use Types Packs/Day Years Used Date Smoking Tobacco: Every Day Cigarettes Smokeless Tobacco: Never Tobacco Cessation:Ready to Q uit: No; Counseling Given: Yes Alcohol Use Standard Drinks/Week Comments Yes 2 (1 standard drink = 0.6 oz pur e alcohol) Social Connections Answer Date Recorded In a typical week, how many times do you talk on the phone with family, friends, or neighbors? Twice a week 07/17/2020 How often do you get together with friends or re latives? Once a week 07/17/2020 How often do you attend evangelical or mormon serv ices? 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 Gender Identity Not on file Sexual Orientation Not on file Last Filed Vital Signs Vital Sign Reading Time Taken Comments Blood Pressure 138/100 04/24/2024 9:19 AM CDT Pulse 77 04/24/2024 9:09 AM CDT Temperature 36.7 C (98 F) 04/24/2024 9:09 AM CDT Respiratory Rate 18 04/24/2024 9:09 AM CDT Oxygen Saturation 99% 04/24/2024 9:09 AM CDT Inhaled Oxygen Concentration - - Weight 73.8 kg (162 lb 12.8 oz) 04/24/2024 9:09 AM CDT Height 167.6 cm (5' 6 ) 04/24/2024 9:09 AM CDT Body Mass Index 26.28 04/24/2024 9:09 AM CDT Plan of Treatment Upcoming Encounters Date Type Department Care Team (Late st Contact Info) Description 06/21/2025 1:20 PM CEMENT BLOCK MAKER Office Visit [facility] [place] [address] [phone] Lopez Lyon MD [address] [phone] Health Maintenance Due Date Last Done Comments Preventative Visit-Managed Medicaid 1979 COLORECTAL SCREENING 2005 FIT-DNA Q 3 years 2005 Flex Sig/CT Colonography Q 5 years 2005 ZOSTER VACCINE (1 of 2) 2010 Colorectal Cancer Screening 11/19/2023 FIT/FOBT Q 1 year 11/19/2023 11/18/2022, 06/11/2021 INFLUENZA VACCINE (#1) 2025 , 12/01/2022, 07/17/2020 DTAP/TDAP/TD VACCINES (2 - T d or Tdap) 01/04/2027 01/04/2017 RSV VACCINE (60+ or ) (1 - 1-dose 75+ series) 2035 Medical Devices Implanted Type Area Hadoop Java Developer Device Identifier Shelf Expiration Date Model / Serial / Lot Lifestream [id number]/20/2017 Implanted: 017 (Quantity not on file) Stent Lifestream [id number]/20/2017 Implanted: 017 (Quantity not on file) Stent Lifestream [id number]/20/2017 Implanted: 017 (Quantity not on file) Stent Procedures Procedure Name Priority Date/Time Associated Diagnosis Comments OCCULT BLOOD IMMUNOASSAY, COLORECTAL SCREEN Routine 11/18/2022 9:38 AM CDT from Last 3 Months or Most Recently Relevant to Health Maintenance Results * OCCULT BLOOD IMMUNOASSAY, COLORECTAL SCREEN (11/18/2022 9:38 AM CDT) FECAL GLOBIN SEE NOTE [facility] [place] Comment: FECAL GLOBIN BY IMMUNOCHEMISTRY Micro Number: [id number] Test Status: Final Specimen Source: Not given Specimen Quality: Adequate Fecal Globin: Not Detected NO COLLECTION DATE RECEIVED. WE HAVE USED THE DATE THE SPECIMEN WAS RECEIVED BY THIS LABORATORY THE COLLECTION DATE. IF THIS IS INCORRECT, PLEASE CONTACT CLIENT SERVICES. PHONE NUMBER: [phone] FASTING: UNKNOWN Test Performed at: [facility] [facility] [address] [facility] [place] [address] Giulia Frye MD 11/10/2022 7:3 5 AM CDT Lopez Lyon MD BODY FLUIDS AND STOOLS Fi nal Result [facility] [phone] [facility] [address] [place] [address] from Last 3 Months or Most Recently Relevant to Health Maintenance Insurance [address] [address] MEDICAID [place] Care Teams Wedding Decorator Relationship Specialty Start Date End Date Lopez Lyon MD [address] [facility] [address] [place] [address] PCP - General Family Practice 04/24/24
--- OUTSIDE RECORDS SUMMARY | 2025-06-05 09:31 | XMS_ITS | Clinical Summary ---
Author Organization [facility]3] [place] Address [address] [facility] [place] [address] Care Team Providers Care Crayon Sorting Machine Feeder Name Role Phone Lopez Lyon MD Primary Care Provider [phone] [phone] Allergies No known active allergies Medications aspirin (ECOTRIN EC) 81 mg Tablet, Delayed Release (E.C.) Take 81 mg by mouth daily. Active famotidine (PEPCID) 20 mg tabletIndications:G astroesophageal reflux disease without esophagitis Take 1 Tablet (20 mg) by mouth 2 times daily as needed for Other (See Comment) (Heartburn) . 60 Tablet 2 9 Active atorvastatin (LIPITOR) 20 mg tabletIndications:P AD (peripheral artery disease),Mixed hyperlipidemia Take 1 Tablet (20 mg) by mouth late in the day. 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 Reattached upper extremity complication, right 1 Mixed hyperlipidemia 05/31/2017 Osteoarthritis of multiple joints 05/31/2017 Tobacco dependence 05/31/2017 Resolved Problems Problem Noted Date Diagnosed Date Resolved Date PVD (peripheral vascular dis ease) with claudication 06/14/2017 09/20/2017 Immunizations Immunization Administration Dates Next Due (ADACEL/BOOSTRIX)(10 YR UP) TDAP VACCINE, 0.5ML, IM 01/04/2017 Family History Medical History Relation Name Comments Diabetes Mother Stroke Mother Relation Name Status Comments Mother Social History Tobacco Use Types Packs/Day Years Used Date Smoking Tobacco: Every Day Cigarettes 0.3 35 Smokeless Tobacco: Never Tobacco Cessation:Ready to Q uit: No; Counseling Given: Yes Comments:Currently smokes 0.25 ppd , considering to quit later, chantix created N/V for this pt. Alcohol Use Standard Drinks/Week Comments Yes 2 (1 standard drink = 0.6 oz pure alcohol) occasional couple beers a couple times a week. Social Connections Answer Date Recorded In a typical week, how many times do you talk on the phone with family, friends, or neighbors? Twice a week 07/17/2020 How often do you get together with friends or re latives? Once a week 07/17/2020 How often do you attend islam or congregation serv ices? Never 07/17/2020 Do you belong to any clubs o r organizations such as islam groups, unions, fraternal or athletic groups, or school groups? Yes 07/17/2020 Attends Club or Organization Meetings Not on ej e 07/17/2020 Marital Status Not on file 07/17/2020 Financial Resource Strain Answer Date R ecorded How hard is it for you to pa y for the very basics like food, housing, medical care, and heating? Somewhat hard 07/17/2020 Food Insecurity Answer Date Recorded Within the past 12 months, y ou worried that your food would run out before you got the money to buy more. Sometimes true Within the past 12 months, t he food you bought just didn't last and you didn't have money to get more. Never true 05/2020 Transportation Needs Answer Date Record ed In the past 12 months, has l ack of transportation kept you from medical appointments or from getting medications? No 07/08 In the past 12 months, has l ack of transportation kept you from meetings, work, or from getting things needed for daily living? No 07/17/2020 Education Answer Date Recorded What is the highest level of school you have completed or the highest degree you have received? 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 Gender Identity Not on file Sexual Orientation Not on file Last Filed Vital Signs Vital Sign Reading Time Taken Comments Blood Pressure 130/84 07/17/2020 2:09 PM HARD ROCK MINER BLASTING Pulse 84 07/17/2020 2:09 PM HARD ROCK MINER BLASTING Temperature 37 C (98.6 F) 07/17/2020 2:09 PM HARD ROCK MINER BLASTING Respiratory Rate 18 07/17/2020 2:09 PM HARD ROCK MINER BLASTING Oxygen Saturation 96% 07/17/2020 2:09 PM HARD ROCK MINER BLASTING Inhaled Oxygen Concentration - - Weight 72.6 kg (160 lb) 07/17/2020 2:09 PM HARD ROCK MINER BLASTING Height 170.2 cm (5' 7 ) 07/17/2020 2:09 PM HARD ROCK MINER BLASTING Body Mass Index 25.06 07/17/2020 2:09 PM HARD ROCK MINER BLASTING Plan of Treatment Health Maintenance Due Date Last Done Comments FIT/ DNA Q 3 YEARS (AUTO ORDER) 1978 FLEX SIG/CT COLONOGRAPHY Q 5 YEARS (AUTO ORDER) 1977 COLORECTAL CANCER SCREENING (AUTO ORDER) 2005 COLORECTAL SCREENING 2005 Colorectal Cancer Screening 2005 FIT-DNA Q 3 years 2005 FIT/FOBT Q 1 year 2005 Flex Sig/CT Colonography Q 5 years 2005 ZOSTER VACCINE (1 of 2) 2010 Colorectal Cancer Screening (AUTO ORDER) 11/19/2023 FIT/FOBT Q 1 YEAR (AUTO ORDER) 11/19/2023 11/18/2022 Medicare Advantage (DC) Prev entative Visit/Annual Wellness Visit 08/08/2024 INFLUENZA VACCINE (#1) 2025 07/17/2020 DTAP/TDAP/TD VACCINES (2 - Td or Tdap) 01/04/2027 RSV VACCINE (60+ or ) (1 - 1-dose 75+ series) 2035 Medical Devices Implanted Type Area Rn Compliance Device Identifier Shelf Expiration Date Model / Serial / Lot Lifestream [id number]/20/2017 Implanted: 017 (Quantity not on file) Stent Lifestream [id number]/20/2017 Implanted: 017 (Quantity not on file) Stent Lifestream [id number]/20/2017 Implanted: 017 (Quantity not on file) Stent Insurance MEDICAID [place] [facility] DUAL COMPLETE [facility] HMO SNP WORKERS COMP Care Teams Crayon Sorting Machine Feeder Relationship Specialty Start Date End Date Lopez Lyon MD [address] [phone] PCP - General Family Practice 06/08/17
--- NOTE | 2025-06-05 09:50 | XR_ITS ---
WS: [id number] Exam: XR chest 1V portable [id number] Date/Time of Exam: 06/05/2025 9:52 AM Reason For Exam: chest pain Comparison 03/30/2022. The lungs are fully expanded and clear. Normal cardiomediastinal silhouette. Bony structures are intact. XR/XR chest 1V portable [id number] IMPRESSION: 1. Negative chest.
--- NOTE | 2025-06-05 11:06 | ED_ITS ---
HPI - Chest Pain 2 General: Chief Complaint: Chest Pain Stated Complaint: CP SOB Time Seen by Provider: 06/05/25 11:06 History of Present Illness: 64-year-old man with a history of periph eral vascular disease status post stents in his groin, chronic anticoagulation on Plavix, hypertension, hyperlipidemia, and arthritis who presents emergency room with chest pain. He says this been going on for a long time now. He says it hurts when he exerts himself. He says when he aggravates it. He describes a sharp pain that goes into his shoulders and into both of his arms. He said he could not get into his PCP for couple more weeks. He says he finally just got tired of it and came in. No cough. No fever. No abdominal pain. No vomiting. No known history of coronary disease Related Data Home Medications ?Medication ?Instructions ?Recorded ?Confirmed aspirin 81 mg capsule 81 mg PO DAILY 03/29/2203/09 atorvastatin 20 mg tablet 20 mg PO DAILY 03/29/2203/09 clopidogrel 75 mg tablet 75 mg PO DAILY 03/29/2203/09 Previous Rx's ?Medication ?Instructions ?Recorded carvedilol 3.125 mg tablet 3.125 mg PO BID #60 tabs hydrocodone 5 mg-acetaminophen 325 1 tab PO Q6H PRN pa in #25 tabs 03/31/22 mg tablet famotidine 40 mg tablet 40 mg PO DAILY #30 tabs 05/09 05/02 Allergies Allergy/AdvReac Type Severity Reaction Status Date / Time No Known Allergies Allergy Verified 03/29/22 12:49 Review of Systems 2 Narrative: Constitutional symptoms: Negative except as documented in HPI. Skin symptoms: Negative except as documented in HPI. Eye symptoms: Negative except as documented in HPI. ENMT symptoms: Negative except as documented in HPI. Respiratory symptoms: Negative except as documented in HPI. Cardiovascular symptoms: Negative except as documented in HPI. Gastrointestinal symptoms: Negative except as documented in HPI. Genitourinary symptoms: Negative except as documented in HPI. Musculoskeletal symptoms: Negative except as documented in HPI. Neurologic symptoms: Negative except as documented in HPI. Psychiatric symptoms: Negative except as documented in HPI. Endocrine symptoms: Negative except as documented in HPI. PFS ED 2 PFS: Medical History (Updated 06/05/25 @ 12:36 by Ana Lawrence MD) Arthritis Hyperlipidemia GERD (gastroesophageal reflux disease) PAD (peripheral artery disease) PVD (peripheral vascular disease) Warthin's tumor Posterior cervical lymphadenopathy DVT (deep venous thrombosis) Tobacco use HTN (hypertension) High cholesterol Mass of right parotid gland Peripheral artery disease Surgical History (Updated 03/30/22 @ 21:53 by Marquez Collado MD) H/O hand surgery History of surgery on lower extremity Family History Mother Stroke Diabetes Social History Smoking and tobacco/nicotine status: current every day tobacco/nicotine user Second hand smoke exposure: Yes Physical Exam 2 Narrative: EXAM NARRATIVE: General: Alert, no acute distress. Skin: Warm, dry. Head: Normocephalic, atraumatic. Neck: Supple, trachea midline. Eye: Extraocular movements are intact. Ears, nose, mouth and throat: mucosa moist. Cardiovascular: Regular, Normal peripheral perfusion. Respiratory: Lungs are clear to auscultation, respirations are non-labored, breath sounds are equal, Symmetrical chest wall expansion. Gastrointestinal: Soft, Nontender, Non distended Musculoskeletal: Normal ROM, no deformity. Neurological: Alert and oriented, No focal neurological deficit observed. Psychiatric: Cooperative, appropriate mood & affect. Course 2 Vital Signs: Vital signs: Vital Signs Temperature 98.1 F 06/05/25 09:09 Pulse Rate 82 06/05/25 09:09 Respiratory Rate 18 06/05/25 09:09 Blood Pressure 157/93 06/05/25 09:09 Pulse Oximetry 98 06/05/25 09:09 Oxygen Delivery Me thod Room Air 06/05/25 09:09 MDM - Chest Pain Medical Decision Making Medical decision making: Patient's reason for coming to the emergency room Social determinants I reviewed the patient's medical record. 64-year-old man with a history of peripheral vascular disease status post stents in his groin, chronic anticoagulation on Plavix, hypertension, hyperlipidemia, and arthritis. I reviewed the patient's current home meds Patient on Plavix and aspirin. Atorvastatin and carvedilol. Alternate historians: None Differential diagnosis for patient with chest pain includes but is not limited to and based on the above HPI, review of systems and physical exam: Pneumonia. unstable angina. angina. Acute coronary syndrome / VT. Pulmonary embolism. Costochondritis / musculoskeletal. Pleurisy. Pericarditis. Esophageal spasm. Pancreatis. Cholecystitis. Orders placed to evaluate differential diagnosis based on the above differential, HPI and physical exam EKG: Time 1142. Rate 65. Normal sinus rhythm, No ST-T changes, no ectopy, normal [place] & QRS intervals, This was reviewed and interpreted by myself the ER physician at 1145 Chest x-ray: No acute process. No infiltrate. No pneumothorax. This was reviewed and interpreted by myself the emergency room physician. I also reviewed the radiology report. Lab Review: Laboratory results were reviewed and interpreted by myself the emergency room physician. No leukocytosis. No anemia. No renal failure. Initial troponin is 10. Repeat troponin has no significant change. Assessment of risk: Level of risk: Moderate Hospitalization considerations: We discussed hospitalization at length. The symptoms have been present for at least a year now. He says just progressively getting slightly worse. He had no EKG changes and no elevation in his troponin. His heart score was a 4 which does recommend hospitalization. However 3 these points are from him having peripheral vascular disease. I did offer admission but given the chronicity and negative workup here he prefers to get a stress test with his primary provider in the near future. He does complain of indigestion symptoms. I will call him in some antiacid. Reexamination: Patient remained stable. No increased work of breathing. No altered mental status. No focal motor deficits. Assessment and plan: Chest pain ?Negative workup here. With him having peripheral vascular disease he does need to have a stress test very soon. - Discharged home - Discussed plan with patient. Answered any questions. - Evaluation and treatment of this problem were appropriate in the emergency setting. Lab Data 06/05/25 10:51 06/05/25 10:51 Radiology Impressions Chest X-Ray 06/05/25 09:50 IMPRESSION: 1. Negative chest. Laboratory Results WBC 7.95 10^3/uL (3.29-11.43) 06/05/25 10:51 RBC 4.69 10^6/uL (3.85-5.65) 06/05/25 10:51 Hgb 14.00 g/dL (11.27-16.99) 06/05/25 10:51 Hct 42.5 % (37-53) 06/05/25 10:51 MCV 90.6 fl (82-101) 06/05/25 10:51 MCH 29.9 pg (27-33) 06/05/25 10:51 MCHC 32.9 g/dL (30-55) 06/05/25 10:51 RDW 13.1 % (12.1-15.1) 06/05/25 10:51 Plt Count 292 10^3/cmm (157-399) 06/05/25 10:51 MPV 11.2 fL (7.4-10.4) H 06/05/25 10:51 Neut % (Auto) 69.1 % 06/05/25 10:51 Lymph % (Auto) 20.5 % 06/05/25 10:51 [place] % (Auto) 7.8 % 06/05/25 10:51 Eos % (Auto) 1.6 % 06/05/25 10:51 Baso % (Auto) 0.6 % 06/05/25 10:51 Neut # (Auto) 5.49 10^3/uL (1.8-7.7) 06/05/25 10:51 Lymph # (Auto) 1.6 10^3/uL (0.8-4.8) 06/05/25 10:51 [place] # (Auto) 0.6 10^3/uL (0.2-0.9) 06/05/25 10:51 Eos # (Auto) 0.1 10^3/uL (0.0-0.8) 06/05/25 10:51 Baso # (Auto) 0.1 10^3/uL (0.0-0.1) 06/05/25 10:51 Nucleated RBC % (auto) 0 % 06/05/25 10:51 Nucleated RBCs # 0.0 /100WBC 06/05/25 10:51 Sodium 140 mmol/L (136-145) 06/05/25 10:51 Potassium 4.5 mmol/L (3.5-5.1) 06/05/25 10:51 Chloride 103 mmol/L (98-107) 06/05/25 10:51 Carbon Dioxide 23 mmol/L (22-29) 06/05/25 10:51 Anion Gap 18.5 (5-19) 06/05/25 10:51 BUN 12 mg/dL (8-23) 06/05/25 10:51 Creatinine 0.8 mg/dL (0.7-1.2) 06/05/25 10:51 GFR Calculation 97.3 mL/min (90-130) 06/05/25 10:51 Glucose 96 mg/dL (65-115) 06/05/25 10:51 Calculated Osmolality 290 mOsm/kg (285-295) 06/05/25 10:51 Calcium 9.4 mg/dL (8.5-10.5) 06/05/25 10:51 Total Bilirubin 0.3 mg/dL (0.15-1.2) 06/05/25 10:51 AST 17 U/L (0-40) 06/05/25 10:51 ALT 21 U/L (0-41) 06/05/25 10:51 Alkaline Phosphatase 90 U/L (40-130) 06/05/25 10:51 Troponin T Baseline 10 ng/L (0-15) 06/05/25 10:51 Troponin T 120 Minute 9.66 ng/L (0-15) 06/05/25 11:58 Delta Troponin T -0.34 ABS# (0-10) L 06/05/25 11:58 Total Protein 6.9 g/dL (6.6-8.7) 06/05/25 10:51 Albumin 4.6 g/dL (3.5-5.2) 06/05/25 10:51 Globulin 2.3 g/dL (1.3-4.6) 06/05/25 10:51 All radiology interpretation(s) finalized by discharge Clincial Decision Support The following clinical decision support tools were used to aid in care of the patient HEART Score -> History: Moderately Suspicious, EKG: Normal, Age: 45-64 yrs, Risk Factors: >/=3 Risk Factors, Troponin: Baseline Trop <16 ng/L. Resulting HEART Score: 4. Discharge Plan Discharge Patient Disposition: Home Clinical Impression: Chest pain, Dyspepsia Condition: Stable Prescriptions: New famotidine 40 mg tablet 40 mg PO DAILY Qty: 30 1RF No Action atorvastatin 20 mg tablet 20 mg PO DAILY clopidogrel 75 mg tablet 75 mg PO DAILY aspirin 81 mg Capsule 81 mg PO DAILY carvedilol 3.125 mg Tablet 3.125 mg PO BID Qty: 60 0RF hydrocodone-acetaminophen 5-325 mg tablet 1 tab PO Q6H PRN (Reason: pain) Qty: 25 0RF Discharge Orders: Discharge ED (Routine); Ordered 06/05/25 Ordered By: Ana Lawrence Referrals: Lopez Lyon [Primary Care Provider, Family Practice] Discharge Diet: Usual diet Discharge Activity: Increase activity as tolerated Patient Instructions: Chest Pain (ED), Opioid Safety, Pain Management, Patient Portal & Lisa Instructions Activity Restrictions/Additional Instructions: Thank you for choosing [facility] for your healthcare needs today. You have been screened and evaluated and felt safe for discharge. Health conditions do change or evolve sometimes and as such it is important that you follow up with your Primary Doctor to be re checked, 3-5 days is a general good time frame for follow up. You are always welcome to return to the ED for re assessment if your symptoms are worsening or you have new concerns Print Language: Tristanian Coding Level of Care Code ED Payroll Lead for Chg Fwd Heart Score HEART Score Components History: Moderately Suspicious EKG: Normal Age: 45-64 yrs Risk Factors: >/=3 Risk Factors Troponin: Baseline Trop <16 ng/L HEART Score RESULT HEART Score: 4
[2025-06-05 11:07] LABS: Hematocrit 42.5 % (37-53); Hemoglobin 14.00 g/dL (11.27-16.99); Mean Corpuscular HGB Conc 32.9 g/dL (30-55); Mean Corpuscular Hemoglobin 29.9 pg (27-33); Mean Corpuscular Volume 90.6 fl (82-101); Nucleated Red Blood Cells % 0 %; Platelet Count 292 10^3/cmm (157-399); Red Blood Count 4.69 10^6/uL (3.85-5.65); White Blood Count 7.95 10^3/uL (3.29-11.43)
[2025-06-05 11:25] LABS: Troponin(5th) Baseline 10 ng/L (0-15)
[2025-06-05 11:27] LABS: Alanine Aminotransferase 21 U/L (0-41); Albumin Level 4.6 g/dL (3.5-5.2); Alkaline Phosphatase 90 U/L (40-130); Aspartate Amino Transferase 17 U/L (0-40); Blood Urea Nitrogen 12 mg/dL (8-23); Calcium 9.4 mg/dL (8.5-10.5); Carbon Dioxide 23 mmol/L (22-29); Chloride 103 mmol/L (98-107); Creatinine Clr Calc Pharmacy 90.6326; Globulin 2.3 g/dL (1.3-4.6); Glucose 96 mg/dL (65-115); Osmolality Calculated 290 mOsm/kg (285-295); Sodium 140 mmol/L (136-145); Total Protein 6.9 g/dL (6.6-8.7)
--- NOTE | 2025-06-05 11:50 | ECG_ITS ---
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 Measurements Intervals [place] Rate: 65 P: 61 NC: 183 QRS: 63 QRSD: 90 T: 53 QT: 368 QTc: 385 Interpretive Statements SINUS RHYTHM Compared to ECG 06/05/2025 09:12:13 No significant changes Electronically Signed On 06-08-2025 21:16:11 CDT by Haim Babcock M.D. [email or web address]
[2025-06-05 12:23] LABS: Troponin 5 2HR 9.66 ng/L (0-15)
[2025-06-05 12:33] LABS: Troponin 5 2HR Delta -0.34 ABS# (0-10)
[2025-06-05 12:35] LABS: Anion Gap 18.5 (5-19); Potassium 4.5 mmol/L (3.5-5.1)
[2025-06-05 12:46] VITALS: BP 140/93; PULSE 65; O2SAT 95
[2025-06-05 13:00] VITALS: BP 140/93; PULSE 70; O2SAT 97
== END 2025-06-05 13:02 | disposition home or self-care (01) ==
PROVIDERS: Family Medicine; Emergency Provider Emergency Medicine; PCP Family Medicine
DX: R07.9 Chest pain, unspecified (principal); R10.13 Epigastric pain; Z79.82 Long term (current) use of aspirin; Z79.02 Long term (current) use of antithrombotics/antiplatelets; Z72.0 Tobacco use; E78.5 Hyperlipidemia, unspecified; I10 Essential (primary) hypertension
CPT/HCPCS: 36415; 71045; 80053; 84484; 85025; 93005; 99285; J9999

== ENCOUNTER 2025-06-24 08:59 | Outpatient (CLI) | payer OTHER, SELFPAY ==
--- NOTE | 2025-06-24 09:04 | NMCV_ITS ---
NM jana perf SPECT r/s* [id number] Basil Chua Age: 64 Gender: M : 1960 Exam Date: 06/24/2025 09:51 Ordering Phys: Jazmin Wan Technologist: ADRIEN Varner Exam Location: [facility] Indications: cp STRESS TEST Please see separate stress test report in [facility] for full findings IMAGE PROTOCOL Rest/Stress 1 Lexiscan Day Radiopharmaceutical Dose (mCi) Administration Site Administered by Rest: Tc-99m 10.4 IV ADRIEN De Leon Sestamibi Stress:Tc-99m 32.9 IV ADRIEN Varner Sestamialisa Rest: 24-Jun-2025 60 Discovery 630 Stress: 24-Jun-2025 30 Discovery 630 0.4mg Lexiscan. Images obtained in supine and prone position. SPECT RESULTS Technical Quality: Good Raw Data Analysis: Normal Image Corrections: No attenuation or motion correction applied Summed Stress Score: 8 Summed Rest Score: 0 Summed Difference Score: 8 PERFUSION FINDINGS There is a medium sized area of moderate ischemia in the mid and basal anterolateral and inferolateral wall segments. Elevated TID ratio of 1.37 consistent with possible multivessel coronary artery disease. FUNCTIONAL RESULTS (calculated via Gated SPECT) Stress Image LV EF (%): 71 Stress EDV (mL):75 TID: 1.37 Stress ESV (mL):22 FUNCTIONAL FINDINGS: There is normal left ventricular systolic function, EF 71% IMPRESSIONS 1. There is a medium sized area of moderate ischemia in the mid and basal anterolateral and inferolateral wall segments. Elevated TID ratio of 1.37 consistent with possible multivessel coronary artery disease. 2. There is normal left ventricular systolic function, EF 71% Haim Babcock MD, FACC (Electronically Signed) Final Date: 24 June 2025 21:37 S
--- NOTE | 2025-06-24 09:04 | ECG_ITS ---
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 Interpretive Statements Procedure: A total of 0.4 mg of Lexiscan was infused over 20 seconds. The stress phase was continued for a total of 5 minutes. Sestamibi was injected 20 seconds after the Lexiscan infusion. Findings: Patient's baseline blood pressure was 158/81 with a heart rate of 70 bpm. after Lexiscan injection the patient's blood pressure decreased to a minimum of 140/80 mmHg and heart rate increased to a maximum of 92 bpm. At the end of recovery the patient's blood pressure was 146/87 with a heart rate of 79 bpm. The baseline EKG showed normal sinus rhythm with possible old anteroseptal myocardial infarction and minimal ST depressions. There was mild worsening of ST depressions throughout the stress test and into recovery. There were no arrhythmias. Conclusion: 1. Borderline criteria for ischemia on stress EKG 2. No Lexiscan induced chest pain or cardiac arrhythmia. 3. Normal blood pressure and heart rate response. 4. Nuclear myocardial perfusion scan pending; see separate report. Electronically Signed On 06-25-2025 11:39:29 FISHING [employer] TECHNICIAN [employer] by Haim Babcock M.D. [id number]
[2025-06-24 09:06] VITALS: BMI 26.9
[2025-06-24 10:32] VITALS: BP 146/87; PULSE 80
== END 2025-06-24 09:00 | disposition home or self-care (01) ==
LOC: CDL 09:03
PROVIDERS: PCP Family Medicine; Visit Provider Registered Nurse
DX: R07.9 Chest pain, unspecified (principal); I10 Essential (primary) hypertension; R94.39 Abnormal result of other cardiovascular function study
CPT/HCPCS: 78452; 93017; A9500; J2785